=== PATIENT | male | born 1985 | race Hispanic/Latino ===

== ENCOUNTER 2020-04-14 09:05 | Outpatient (CLI) | payer BC ==
--- NOTE | 2020-04-14 10:41 | MRI ---
LUMBAR SPINE MRI WITH AND WITHOUT CONTRAST: COMPARISON: 09/05/2014. HISTORY: Low back pain with radiation down to the right thigh. Two previous lumbar surgeries. FINDINGS: Appropriate T1 marrow signal intensity of the lumbar vertebrae. Lumbar spine vertebral body height is maintained. There is no fracture. No significant STIR hyperintensity to suggest ligamentous injury or vertebral body edema. Appropriate signal intensity visualized paraspinal muscles and solid organs. Conus medullaris terminates at the mid T12 level. Postcontrast images do not demonstrate any abnormal enhancement with regards to the vertebral bodies. There is no abnormal enhancement within the thecal sac, including the cauda equina and conus medullaris. T12-L1: Adequate disc hydration. No posterior disc abnormality. No significant central canal stenosis or significant neural foraminal narrowing. L1-L2: Adequate disc hydration. No posterior disc abnormality. No significant central canal stenosis or significant neural foraminal narrowing. L2-L3: Adequate disc hydration. No posterior disc abnormality. No significant central canal stenosis or significant neural foraminal narrowing. L3-L4: Adequate disc hydration. No posterior disc abnormality. No significant central canal stenosis or significant neural foraminal narrowing. L4-L5: Adequate disc hydration. No posterior disc abnormality. No significant central canal stenosis or significant neural foraminal narrowing. L5-S1: Adequate disc hydration. No posterior disc abnormality. No significant central canal stenosis or significant neural foraminal narrowing. IMPRESSION: 1. No significant central canal stenosis or significant neural foraminal narrowing throughout the lum bar spine. 2. No abnormal enhancement.
[2020-04-14] MEDS ORDERED: Magnevist 469MG/ML 20 ML VIAL ONE (11:24)
== END 2020-04-14 09:06 | disposition home or self-care (01) ==
LOC: TBSIIMAG 09:05 → MRI 09:06
PROVIDERS: ATTEND Neurological Surgery
DX: M54.5 Low back pain (principal)
CPT/HCPCS: 72158; A9579

== ENCOUNTER 2020-04-18 14:41 | Outpatient (CLI) | payer BC, OTHER ==
[~2020-04-18 14:41] MED LIST: Magnevist 469MG/ML 20 ML VIAL ONE
--- NOTE | 2020-04-18 18:05 | MRI ---
MR OF THE THORACIC SPINE WITH AND WITHOUT CONTRAST INDICATION: 35-year-old male with history of mid back pain for 10 years TECHNIQUE: Multiplanar multisequence MR images were obtained of the thoracic spine without contrast. Spine count series was provided. COMPARISON: None FINDINGS: 19 cc of MultiHance was utilized for the exam. Bone marrow signal intensity: Normal Spinal alignment: Normal Spinal cord: Normal signal intensity and contour. Paravertebral soft tissues: Normal Vertebral levels: T1-T2: No appreciable central canal or neural foraminal narrowing is evident. T2-T3: No appreciable central canal or neural foraminal narrowing. T3-T4: No appreciable central canal or neural foraminal narrowing.. T4-T5: No appreciable central canal or neural foraminal narrowing. T5-T6: There is a very tiny broad-based disc bulge without appreciable central canal or neural forami nal narrowing. T6-T7: No appreciable central canal or neural foraminal narrowing. T7-T8: No appreciable central canal or neural foraminal narrowing. T8-T9: No appreciable central canal or neural foraminal narrowing. T9-T10: No appreciable central canal or neural foraminal narrowing. T10-T11: No appreciable central canal or neural foraminal narrowing. T11-T12: No appreciable central canal or neural foraminal narrowing. T12-L1: No appreciable central canal or neural foraminal narrowing. Additional findings: No definite abnormal enhancement is demonstrated. IMPRESSION: 1. 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 No appreciable central canal or neural alena inal narrowing. 2. No abnormal enhancement demonstrated.
--- NOTE | 2020-04-18 18:22 | MRI ---
MR OF THE PELVIS WITH AND WITHOUT CONTRAST: 04/18/20 INDICATIONS: History of perineal numbness. COMPARISON: CT of the abdomen and pelvis dated 04/28/14. TECHNIQUE: Multiplanar and multisequence MR images were obtained of the pelvis with and without IV contrast util izing 19 mL of Multihance. FINDINGS: Along the expected course of the pudendal nerves, no visualized mass or lymphadenopathy is grossly ev ident. No definite abnormal signal or enhancement is evident involving the nerves. The prostate gland demonstrates some heterogeneous T2 intermediate to hypointense signal abnormalities within the perip heral zone which can be seen with prior prostatitis. The prostate gland measures 3.9 cm. There are sc attered colonic diverticula. There are small bilateral hydroceles within the scrotum. The visualized bone marrow signal intensity appears within normal limits. The sacral neural foramina appear patent. The visualized piriformis appears within normal limits bilaterally. The visualized sciatic nerves canelo ear within normal limits. There is a small fat containing umbilical hernia. No abnormal regions of en hancement are demonstrated. IMPRESSION: 1. No definite acute abnormality demonstrated along the course of the pudendal nerves. No intrap elvic mass or lymphadenopathy demonstrated. Colonic diverticulosis. 2. Small fat containing umbilical hernia. 3. Small bilateral hydroceles. 4. Heterogeneous T2 signal intensity involving the peripheral zone of the prostate gland can be seen with prior prostatitis. Would recommend correlation with patient's history and clinical exam. POS: [facility]
== END 2020-04-18 14:42 | disposition home or self-care (01) ==
LOC: BICMRI 14:41
PROVIDERS: ATTEND Neurological Surgery
DX: M54.6 Pain in thoracic spine (principal); R20.0 Anesthesia of skin; M51.34 Other intervertebral disc degeneration, thoracic region; K42.9 Umbilical hernia without obstruction or gangrene; N43.3 Hydrocele, unspecified
CPT/HCPCS: 72157; 72197; A9579

== ENCOUNTER 2022-07-09 12:23 | Outpatient (CLI) | payer BC | END 2022-07-09 12:24 | disposition home or self-care (01) | LOC: TBSIIMAG 12:23 | PROVIDERS: ATTEND Orthopaedic Surgery | DX: M76.52 Patellar tendinitis, left knee (principal); S76.112A Strain of left quadriceps muscle, fascia and tendon, initial encounter; R60.0 Localized edema ==

== ENCOUNTER 2022-08-13 14:16 | Outpatient (CLI) | payer BC | END 2022-08-13 14:17 | disposition home or self-care (01) | LOC: BICMRI 14:16 | PROVIDERS: ATTEND Neurological Surgery | DX: M54.50 Low back pain, unspecified (principal); M25.559 Pain in unspecified hip | CPT/HCPCS: 72131; 72148 ==

== ENCOUNTER 2024-01-26 10:18 | Outpatient (CLI) | payer BC | END 2024-01-26 10:19 | disposition home or self-care (01) | LOC: SCSMRI 10:18 | PROVIDERS: ATTEND Family Medicine | DX: R51.9 Headache, unspecified (principal); R11.0 Nausea | CPT/HCPCS: 70551 ==